=== PATIENT | male | born 1980 | race African-American/Black ===

== ENCOUNTER 2018-09-24 07:57 | Emergency (ER) | payer OTHER ==
--- NOTE | 2018-09-24 08:08 | PDOC ---
History of Present Illness - General Chief Complaint: Urinary Problem Stated Complaint: BURNING ON URINATION Time Seen by Provider: 09/24/18 08:07 History Source: Patient Exam Limitations: No Limitations - History of Present Illness Initial Comments: 09/24/18 08:25 37y M no pmhx presents with dysuria and penile discharge. Pt last had intercourse with another male (a new partner), used protection but it broke within the past 2 weeks. notse he has had dysuria and discharge approximately 5 days. denies any fever/chills, n/v, abd pain, back pain, vision changes, headache, numbnes/tingling/weakness. pt notse he takes truvadi prophylactically but denies having HIV and declines HIV test (states he was treated recently) Past History - Past Medical History Allergies/Adverse Reactions: Allergies Allergy/AdvReac Type Severity Reaction Status Date / Time shrimp Allergy Verified 09/24/18 07:58 Home Medications: Ambulatory Orders NK [No Known Home Medication] 09/30/16 - Suicide/Smoking/Psychosocial Hx Smoking History: Never smoked Have you smoked in the past 12 months: No Hx Alcohol Use: No Drug/Substance Use Hx: No Substance Use Type: None Review of Systems - Review of Systems Able to Perform ROS?: Yes Comments:: 09/24/18 08:30 Constitutional - no reported Fever, Chills, HEENT: no reported vision changes, sore throat Respiratory: no reported cough, sob, hemoptysis Cardiac: no reported chest pain, palpitations, light headedness, leg swelling Abd/GI: no reported abd pain, nausea, vomiting, blood per rectum, melena, diarrhea :+dysuria, Discharge no reported frequency Musculskelatal - no reported back pain, joint swelling skin - no reported bruising, erythema, rash neurological: no reported headache, numbness, focal weakness, tingling, ataxia, hematologic: no reported easy bruising, easy bleeding *Physical Exam - Physical Exam Comments: 09/24/18 08:31 GENERAL: The patient is awake, alert, and fully oriented, Nontoxic - in no acute distress. HEAD: Normocephalic, atraumatic. EYES: extraocular movements intact, sclera anicteric, conjunctiva clear. ENT: Normal voice, Moist mucous membranes. NECK: Normal range of motion, supple LUNGS: Breath sounds equal, clear to auscultation bilaterally. No wheezes, no rhonchi, no rales. HEART: Regular rate and rhythm, normal S1 and S2 without murmur, rub or gallop. ABDOMEN: Soft, nontender, No guarding, no rebound. . No CVA tenderness : no testicualr tenderness, slight clear discharge from meatus, nonspecific skin thickening on L scrotum. EXTREMITIES: Normal range of motion, No clubbing or cyanosis. No cords, erythema, or tenderness. NEUROLOGICAL: No facial assymetry, Normal speech, movnig all 4 extremities spontnaeously and symmetrically PSYCH: Normal mood, normal affect. SKIN: Warm, Dry, normal turgor, Medical Decision Making - Medical Decision Making 09/24/18 08:32 suspect utheritis will send urine cx, GC will treat pt with ctx/azithro will send RPR to eval rash pt declines HIV test wll have pt fu with his doctor in [facility] I discussed the physical exam findings, ancillary test results and final diagnoses with the patient. I answered all of the patient's questions. The patient was satisfied with the care received and felt comfortable with the discharge plan and treatment plan. The patient will call their primary care physician within 24 hours to arrange follow-up and will return to the Emergency Department with any new, persistent or worsening symptoms. *DC/Admit/Observation/Transfer Diagnosis at time of Disposition: Urethritis - Discharge Dispostion Disposition: HOME Condition at time of disposition: Improved Decision to Admit order: No - Referrals Schedule a call back: MICKY , treated in ED Referrals: [facility] [place] [facility] [Provider Group] - Patient Instructions Printed Discharge Instructions: DI for Urethritis Additional Instructions: Return to the emergency department immediately with ANY new, persistent or worsening symptoms including fevers, pain or any other concerns. You were treated with antibiotics your cultures are pending we will notify you if they are positive. If it is positive your partners should be treated. Refrain from having intercourse for 7 days after treatment. You MUST call and follow up with your doctor in 3-4 days for further evaluation of your symptoms. Results were discussed with you. Please make sure your doctor reviews the results of your emergency evaluation. Print Language: ESTONIAN - Post Discharge Activity
[2018-09-24 08:10] VITALS: BP 135/78; PULSE 93; TEMP 98.7; BMI 26.8
[2018-09-24] MEDS ORDERED: AZITHROMYCIN 1 GM PACKET PO ONE (08:23)
[2018-09-24 08:27] LABS: PH,URINE 7.5 (4.5-8); URINE APPEARANCE Clear; URINE BILIRUBIN Negative (NEGATIVE); URINE COLOR Yellow; URINE GLUCOSE (UA) Negative (NEGATIVE); URINE KETONE Negative (NEGATIVE); URINE LEUK ESTERASE Negative (NEGATIVE); URINE NITRITE Negative (NEGATIVE); URINE PROTEIN Negative (NEGATIVE); URINE UROBILINOGEN 0.2 (0.2-1.0)
[2018-09-24] MEDS ORDERED: LIDOCAINE HCL 1%, 10 MG/ML (50 mL VIAL) SQ ONE (08:27)
[2018-09-24] MEDS ORDERED: LIDOCAINE HCL 1%, 10 MG/ML (20ML VIAL) ONE (08:34)
[2018-09-24] MEDS ORDERED: AZITHROMYCIN 500 MG TABLET PO ONE (08:41)
== END 2018-09-24 09:04 | disposition home or self-care (01) ==
LOC: FER 07:57
PROC: 3E02329 Introduction of Other Anti-infective into Muscle, Percutaneous Approach (ICD-10-PCS; principal; 2018-09-24)
PROC: 3E023GC Introduction of Other Therapeutic Substance into Muscle, Percutaneous Approach (ICD-10-PCS; 2018-09-24)
DX: N34.2 Other urethritis (principal)
CPT/HCPCS: 36415; 81003; 86593; 87086; 87491; 87591; 99282-25